=== PATIENT | male | born 1960 | race Caucasian/White ===

== ENCOUNTER 2017-01-15 19:47 | Emergency (ER) | payer SELFPAY ==
[~2017-01-15] VITALS: Ht 182.9 cm; Wt 92.5 kg
[2017-01-15 22:00] VITALS: BP 147/90
== END 2017-01-15 22:47 | disposition home or self-care (01) ==
LOC: ER 19:53
DX: L02.414 Cutaneous abscess of left upper limb (principal); F17.210 Nicotine dependence, cigarettes, uncomplicated
CPT/HCPCS: 10060

== ENCOUNTER 2017-01-24 14:42 | Emergency (ER) | payer SELFPAY ==
[~2017-01-24] VITALS: Ht 182.9 cm; Wt 88.5 kg
[2017-01-24 15:32] VITALS: BP 121/78
== END 2017-01-24 16:28 | disposition home or self-care (01) ==
LOC: ER 14:42
DX: L02.412 Cutaneous abscess of left axilla (principal); F17.210 Nicotine dependence, cigarettes, uncomplicated
CPT/HCPCS: 10060; 82962

== ENCOUNTER 2024-06-17 14:38 | Emergency (ER) | payer OTHER ==
[~2024-06-17] VITALS: Ht 182.9 cm; Wt 85.3 kg
[2024-06-17 15:23] LABS: Basophils # (auto) 0.1 10 ^3/uL (0-0.2); Basophils % (auto) 0.7 % (0.0-2.0); Eosinophils # (auto) 0.1 10 ^3/uL (0-0.8); Eosinophils % (auto) 1.2 % (0.0-7.0); Hematocrit 52.7 % (41.0-53.0); Hemoglobin 18.1 g/dL (13.5-17.5); Lymphocytes % (auto) 25.5 % (10.0-50.0); Mean Corpuscular Hemoglobin 33.8 pg (28.0-32.0); Mean Corpuscular Hgb Conc. 34.3 g/dL (32.0-36.0); Mean Corpuscular Volume 98.6 fL (80.0-100.0); Monocytes # (auto) 0.9 10 ^3/uL (0-1.3); Monocytes % (auto) 11.7 % (0.0-12.0); Neutrophils # (auto) 4.8 10 ^3/uL (1.6-8.6); Neutrophils % (auto) 60.9 % (37.0-80.0); Nucleated Red Blood Cells % 0.1 %; Red Blood Cells 5.34 10^6/uL (4.5-5.90); Red Cell Distribution Width 12.9 % (11.8-14.3); White Blood Cell 7.9 10^3/uL (4.4-10.8)
[2024-06-17 15:37] LABS: Alanine Aminotransferase 10 U/L (7-40); Albumin 4.6 g/dL (3.2-4.8); Alkaline Phosphatase 85 U/L (46-116); Anion Gap 9 (5-15); Aspartate Aminotransferase 17 U/L (13-40); BUN/Creatinine Ratio 9.1 (10.0-20.0); Bilirubin, Total 0.4 mg/dL (0.2-1.0); Blood Urea Nitrogen 10 mg/dL (9-23); Calcium 9.9 mg/dL (8.7-10.4); Carbon Dioxide 22 mmol/L (20-30); Chloride 107 mmol/L (98-107); Glucose 119 mg/dL (74-106); Potassium 4.5 mmol/L (3.5-5.1); Sodium 138 mmol/L (136-145); Total Protein 7.1 g/dL (5.7-8.2)
[2024-06-17 16:07] LABS: Urine Bacteria None Seen /hpf (None Seen)
[2024-06-17 16:22] LABS: Urine Blood Negative /uL (Negative); Urine Clarity Clear (Clear); Urine Color Yellow (Yellow); Urine Hyaline Cast FEW /lpf (0 - 2); Urine Mucus FEW (None Seen); Urine Protein, UAD TRACE (Negative); Urine Specific Gravity 1.026 (1.001-1.035); Urine Urobilinogen Normal (Negative); Urine WBC 11 /hpf (0 - 3)
[2024-06-17] MEDS: SODIUM CHLORIDE 0.9% 1,000 ML IV ONE (16:43)
[2024-06-17] MEDS: KETOROLAC TROMETH 30 MG/ML 1ML VIAL IV ONE (16:45)
[2024-06-17] MEDS: ONDANSETRON HCL 4 MG/2 ML VIAL IV ONE (16:45)
[2024-06-17] MEDS ORDERED: HYDR-4902 PO (16:46)
[2024-06-17 16:50] VITALS: BP 130/80; TEMP 97.9
[2024-06-17 16:51] VITALS: PULSE 81; RESP 19; O2SAT 99
== END 2024-06-17 17:14 | disposition home or self-care (01) ==
LOC: ER 14:46
DX: N20.1 Calculus of ureter (principal); F17.210 Nicotine dependence, cigarettes, uncomplicated; Z87.442 Personal history of urinary calculi
CPT/HCPCS: 36415; 74176; 80053; 81001; 85025; 96361; 96374; 96375; 99285; J1885; J2405; J7030

== ENCOUNTER 2024-11-10 13:48 | Emergency (ER) | payer OTHER ==
[~2024-11-10] VITALS: Ht 182.9 cm; Wt 88.0 kg
[~2024-11-10 13:48] MED LIST: HYDR-4902 PO
--- NOTE | 2024-11-10 15:00 | DVH ---
EXAM: CT HEAD WITHOUT CONTRAST INDICATION: fall, head trauma, hemorrhage from R ear TECHNIQUE: CT of the head without intravenous contrast. Radiation Dose Information: CT Dose: CTDI volume is 53.99 mGy. Dose-length product is 863.9 mGy*cm The dose indicators for CT are the volume Computed Tomography (CT) Dose Index (CTDIvol) and the Dose Length Product (DLP), and are measured in units of mGy and mGy-cm, respectively. These indicators are not patient dose, but values generated from the CT scanner acquisition factors. The report includes radiation exposure data for exposures received during this examination. COMPARISON: None FINDINGS: There is no evidence of acute intracranial hemorrhage, extra-axial collection, mass effect, midline s hift, herniation or hydrocephalus. The ventricles, sulci and cisterns are age appropriate. The queen-white differentiation is intact. Patchy periventricular and subcortical white matter hypoattenuation is nonspecific but may be related to small vessel ischemic disease. The visualized paranasal sinuses and mastoid air cells are clear. The surrounding soft tissues and osseous structures are unremarkable. IMPRESSION: 1. No acute intracranial hemorrhage. 2. No CT findings of territorial ischemia. 3. No CT findings of displaced skull fracture.
[2024-11-10 15:18] LABS: Basophils # (auto) 0.1 10 ^3/uL (0-0.2); Basophils % (auto) 0.8 % (0.0-2.0); Eosinophils # (auto) 0.1 10 ^3/uL (0-0.8); Eosinophils % (auto) 1.1 % (0.0-7.0); Hemoglobin 16.7 g/dL (13.5-17.5); Lymphocytes # (auto) 1.7 10 ^3/uL (0.4-5.4); Lymphocytes % (auto) 17.3 % (10.0-50.0); Mean Corpuscular Hemoglobin 33.8 pg (28.0-32.0); Mean Corpuscular Hgb Conc. 34.1 g/dL (32.0-36.0); Mean Corpuscular Volume 98.9 fL (80.0-100.0); Monocytes # (auto) 1.1 10 ^3/uL (0-1.3); Monocytes % (auto) 11.3 % (0.0-12.0); Neutrophils # (auto) 6.8 10 ^3/uL (1.6-8.6); Neutrophils % (auto) 69.5 % (37.0-80.0); Platelet Count (auto) 208 10^3/uL (140-450); Red Blood Cells 4.96 10^6/uL (4.5-5.90); Red Cell Distribution Width 13.2 % (11.8-14.3); White Blood Cell 9.8 10^3/uL (4.4-10.8)
[2024-11-10 15:24] LABS: Anion Gap 7 (5-15); Calcium 10.1 mg/dL (8.7-10.4); Carbon Dioxide 29 mmol/L (20-31); Chloride 105 mmol/L (98-107); Potassium 4.4 mmol/L (3.5-5.1); Sodium 141 mmol/L (136-145)
[2024-11-10 15:28] LABS: INR 0.96 (0.9-1.15); Partial Thromboplastin Time 25.9 SEC (24.5-34.5); Prothrombin Time 10.2 sec (9.3-11.8)
[2024-11-10 15:29] LABS: BUN/Creatinine Ratio 14.8 (10.0-20.0); Blood Urea Nitrogen 17 mg/dL (9-23)
[2024-11-10 15:38] LABS: Glucose 107 mg/dL (74-106)
[2024-11-10] MEDS ORDERED: ACET-1304 PO (19:44)
[2024-11-10] MEDS ORDERED: IBUP-1455 PO (19:44)
[2024-11-10] MEDS ORDERED: BAC09TP TOP (19:44)
[2024-11-10] MEDS ORDERED: CEPH500C PO (19:44)
--- NOTE | 2024-11-10 19:45 | ED.PDOC ---
History of Present Illness HPI Comments 63-year-old male brought in by family complaining of bleeding from his right ear after a mechanical fall. Patient states he was standing on a boat about 10 ft off the ground, when he lost his balance, fell and hit the right side of his head on the ground. He denies losing consciousness or sustain any other injury. He states when he stood up he was having pain in his right ear and heavy bleeding. He denies any nausea, vomiting, vision changes, dizziness or focal weakness. Chief Complaint: Head injury Time Seen by MD: 14:19 Primary Care Provider: NONE Allergies: Coded Allergies: NO KNOWN ALLERGIES (Unverified , 01/24/17) Home Meds Active Scripts Hydrocodone-Acetaminophen (Hydrocodone Bitartrate/AC 5-325 mg) 1 Tab Tab, 1 TAB PO Q8HP PRN for 5 Days, #15 TAB Prov:EVELINE MARTINEZ MD 06/17/24 Mode of Arrival: Ambulatory Past Medical History PAST MEDICAL HISTORY: Kidney Stones Surgical History: Denies all surgeries Family History Family History: Family hx of DM Social History Smoker: Cigarettes Alcohol: Denies ETOH Use Drugs: Denies Drug Use Lives In: Home All Other Systems: Reviewed and Negative (Comprehensive systems review obtained and negative except for what is stated in the HPI.) Physical Exam General Appearance: Mild Distress HEENT: Other (Heavy dark red bleeding from right ear. Large clot in right ear canal. Irregular lacerations on the superior aspect of the helix, lobule, and extending from the antihelix through the javon to the anti tragus. Unable to visualize TM due to canal edema and blood clots) Neck: Full Range of Motion, Non-Tender, Normal Inspection, Supple Respiratory: Chest Non-Tender, Lungs Clear, No Accessory Muscle Use, No Respiratory Distress, Normal Breath Sounds Cardiovascular: No Edema, No JVD, Regular Rate/Rhythm Breast Exam: Deferred Gastrointestinal: Non Tender, Soft Genitalia: Deferred Pelvic: Deferred Rectal: Deferred Extremities: Normal inspection, Normal range of motion, Non-tender, No pedal edema Neurologic: Alert (Oriented x4), Headache, Normal Affect, Normal Mood, Other (Ambulatory without difficulty. No gross focal deficit.) Cerebellar Function: NOT DONE Reflexes: NOT DONE Skin: Dry, Normal Color, Warm, Other (Right ear diffuse soft tissue swelling and tenderness. Subcentimeter superficial linear lacerations superior aspect of the helix, subcentimeter superficial laceration of the lobule. Superficial irregular approximate 3 cm laceration extending from the superior part of the antihelix through the javon to the antitragus.) Lymphatic: NOT DONE Was a procedure done? Was a procedure done?: Yes Sedation Sedation?: No Laceration Repair #1: Location Posterior aspect of the helix right ear Length 4 mm Anesthetic: Nothing Laceration Repair Prep: Saline, Betadine, by Irrigation Laceration Repair Wound Comple: epidermis/dermis repair Laceration Repair: Dermabond Informed consent obtained: Yes Risks, benefits, and alternati: Yes Laceration Repair #2: Location Lobule, right ear Length 5 mm Anesthetic: Nothing Laceration Repair Prep: Saline, Betadine, by Irrigation Laceration Repair Wound Comple: epidermis/dermis repair Laceration Repair: Dermabond Informed consent obtained: Yes Risks, benefits, and alternati: Yes Laceration Repair #3: Location Right Ear antihelix/javon/anti tragus Length 3 cm Anesthetic: Lidocaine, Without epi Laceration Repair Prep: Saline, Betadine, by Irrigation Laceration Repair Wound Comple: epidermis/dermis repair Laceration Repair: Number of sutures (3), Skin, Nylon, Simple, Bacitracin Informed consent obtained: Yes Risks, benefits, and alternati: Yes Differential Dx Considerations may include: Concussion, skull fracture, intracranial hemorrhage, TM rupture, ear contusion, laceration, among others X-Ray, Labs, Meds, VS Vital Signs Date Time Temp Pulse Resp B/P (MAP) Pulse Ox O2 Delivery O2 Flow Rate FiO2 11/10/24 14:39 98.2 111 16 152/92 (112) 96 Lab Test 11/10/24 14:45 Range/Units White Blood Count 9.8 4.4-10.8 10^3/uL Red Blood Count 4.96 4.5-5.90 10^6/uL Hemoglobin 16.7 13.5-17.5 g/dL Hematocrit 49.0 41.0-53.0 % Mean Corpuscular Volume 98.9 80.0-100.0 fL Mean Corpuscular Hemoglobin 33.8 H 28.0-32.0 pg Mean Corpuscular Hemoglobin Concent 34.1 32.0-36.0 g/dL Red Cell Distribution Width 13.2 11.8-14.3 % Platelet Count 208 140-450 10^3/uL Mean Platelet Volume 7.7 6.9-10.8 fL Neutrophils (%) (Auto) 69.5 37.0-80.0 % Lymphocytes (%) (Auto) 17.3 10.0-50.0 % Monocytes (%) (Auto) 11.3 0.0-12.0 % Eosinophils (%) (Auto) 1.1 0.0-7.0 % Basophils (%) (Auto) 0.8 0.0-2.0 % Neutrophils # (Auto) 6.8 1.6-8.6 10 ^3/uL Lymphocytes # (Auto) 1.7 0.4-5.4 10 ^3/uL Monocytes # (Auto) 1.1 0-1.3 10 ^3/uL Eosinophils # (Auto) 0.1 0-0.8 10 ^3/uL Basophils # (Auto) 0.1 0-0.2 10 ^3/uL Nucleated Red Blood Cells 0.0 % Prothrombin Time 10.2 9.3-11.8 sec Prothrombin Time INR 0.96 0.9-1.15 Activated Partial Thromboplast Time 25.9 24.5-34.5 SEC Sodium Level 141 136-145 mmol/L Potassium Level 4.4 3.5-5.1 mmol/L Chloride Level 105 98-107 mmol/L Carbon Dioxide Level 29 20-31 mmol/L Anion Gap 7 5-15 Blood Urea Nitrogen 17 9-23 mg/dL Creatinine 1.15 0.700-1.30 mg/dL Glomerular Filtration Rate Calc 71 >90 mL/min BUN/Creatinine Ratio 14.8 10.0-20.0 Serum Glucose 107 H 74-106 mg/dL Calcium Level 10.1 8.7-10.4 mg/dL PROCEDURE(s): HWOCT - HEAD WITHOUT CONTRAST REASON: fall, head trauma, hemorrhage from R ear ORDER NUMBER(s): [id number], ACCESSION NUMBER(s): [id number] EXAM: CT HEAD WITHOUT CONTRAST INDICATION: fall, head trauma, hemorrhage from R ear TECHNIQUE: CT of the head without intravenous contrast. Radiation Dose Information: CT Dose: CTDI volume is 53.99 mGy. Dose-length product is 863.9 mGy*cm The dose indicators for CT are the volume Computed Tomography (CT) Dose Index (CTDIvol) and the Dose Length Product (DLP), and are measured in units of mGy and mGy-cm, respectively. These indicators are not patient dose, but values generated from the CT scanner acquisition factors. The report includes radiation exposure data for exposures received during this examination. COMPARISON: None FINDINGS: There is no evidence of acute intracranial hemorrhage, extra-axial collection, mass effect, midline shift, herniation or hydrocephalus. The ventricles, sulci and cisterns are age appropriate. The queen-white differentiation is intact. Patchy periventricular and subcortical white matter hypoattenuation is nonspecific but may be related to small vessel ischemic disease. The visualized paranasal sinuses and mastoid air cells are clear. The surrounding soft tissues and osseous structures are unremarkable. IMPRESSION: 1. No acute intracranial hemorrhage. 2. No CT findings of territorial ischemia. 3. No CT findings of displaced skull fracture. X-Ray, Labs, Meds, VS Comment 63-year-old male with a history of kidney stones presenting with right ear bleeding, lacerations and pain after a mechanical fall with head injury. Vitals remarkable for blood pressure 152/92, heart rate 111 Exam remarkable for right ear diffuse soft tissue swelling and tenderness, irregular lacerations, and moderate dark red bleeding Rhythm strip independently interpreted by me: Sinus tach, rate 111, no ectopy. CT head IMPRESSION: 1. No acute intracranial hemorrhage. 2. No CT findings of territorial ischemia. 3. No CT findings of displaced skull fracture. CBC, basic metabolic panel, coagulation panel unremarkable Treated with the following the ED: Morphine 4 mg IV, Zofran 4 mg IV, Tdap 0.5 mL IM, Marbury 5/325 mg p.o. The 2 subcentimeter lacerations were closed using tissue adhesive. The 3 cm laceration was closed using 5.0 Ethilon, #3. Please see procedure notes for details. Bacitracin and a dressing were applied to the sutured laceration. Patient tolerated the procedures well. On re-evaluation, patient states his pain has improved, vitals are stable. He is ambulatory without difficulty. Hospitalization was considered, however patient had rapid improvement of his symptoms with treatment in the ED, he has no focal neurologic deficit, and I no longer feel hospitalization is necessary. Patient appears stable for close outpatient follow up with his primary physician for all to an ENT specialist. Since TM rupture can not be ruled out as I was unable to visualize the TM due to canal edema, the patient will be prescribed antibiotics and close ENT follow up was advised. Patient advised to return to ER in 2-3 days for wound check and 7- 10 days for suture removal. Rx Tylenol, ibuprofen, bacitracin, Keflex Time of 1ST Reevaluation: 19:37 Reevaluation 1ST: Improved Patient Education/Counseling: Diagnosis, Treatment, Need For Follow Up Family Education/Counseling: No Family Present Departure 1 Departure Time of Disposition: 19:37 Impression: Primary Impression: Head injury Qualified Codes: S09.90XA - Unspecified injury of head, initial encounter Additional Impressions: Contusion of right ear Qualified Codes: S00.431A - Contusion of right ear, initial encounter Laceration of right ear Qualified Codes: S01.311A - Laceration without foreign body of right ear, initial encounter Disposition: HOME / SELF CARE / HOMELESS Condition: Stable Additional Instructions: Head CT was unremarkable. Your blood tests were unremarkable. There is a possibility that your tympanic membrane (eardrum) could be damaged. Follow up with your primary doctor in 1-2 days for referral to an ENT (Ear, Nose and Throat) specialist for further evaluation. Alternatively, follow up at for referral to an ENT specialist. Follow up in ER in 2 days for wound check and 10 days for suture removal. The lacerations on the outside of your ear were closed with tissue adhesive. Do not apply oils or lotions to the glued areas. Laceration inside her ear was repaired using 3 stitches. Wash with warm water and pat dry after cleansing. Apply bacitracin only to the sutured wound inside her ear. Return to ER for worsening pain, redness, swelling, wound discharge or any other concern. e-Prescriptions Cephalexin Monohydrate (Cephalexin) 500 Mg Cap 1 CAP PO TID for 7 Days, #21 CAP Prov: OSITO FIGUEROA MD 11/10/24 Bacitracin (Bacitracin Oint) 1 Applic Ap 1 APPLIC TOP TID, #30 GRAMS apply only to sutured wound inside ear Prov: OSITO FIGUEROA MD 11/10/24 Ibuprofen Micronized (Ibuprofen) 800 Mg Tab 800 MG PO Q8HP PRN, #30 TAB prn pain, take with food Prov: OSITO FIGUEROA MD 11/10/24 Acetaminophen (Tylenol Extra Strength) 500 Mg Tab 1000 MG PO Q6HP PRN, #30 TAB prn pain Prov: OSITO FIGUEROA MD 11/10/24 Discharged With: Relative Critical Care Note Critical Care Time?: No Stability Stability form required: No Heart Score Heart Score: Heart Score Response (Comments) Value History N/A 0 EKG N/A 0 Age N/A 0 Risk Factors N/A 0 Troponin N/A 0 Total 0 OSITO FIGUEROA MD Nov 10, 2024 19:45
[2024-11-10] MEDS: TETANUS-DIPTH-ACEL PERTUSSIS 0.5ML SYR Tdap IM ONE (20:56)
[2024-11-10] MEDS: ONDANSETRON HCL 4 MG/2 ML VIAL IV ONE (20:56)
[2024-11-10] MEDS: MORPHINE SULFATE 4 MG/ML SYR/VIAL IV ONE ×2 (20:56)
[2024-11-10] MEDS: HYDROcodone-ACET 5/325MG TAB PO ONE (21:01)
[2024-11-10] MEDS: BACITRACIN TOP OINT 1 UD PKG TOP ONE (21:08)
[2024-11-10 21:13] VITALS: BP 128/85; PULSE 108; RESP 18; TEMP 98.2; O2SAT 97
== END 2024-11-10 21:17 | disposition home or self-care (01) ==
LOC: ER 13:48
DX: S01.311A Laceration without foreign body of right ear, initial encounter (principal); F17.210 Nicotine dependence, cigarettes, uncomplicated; Z79.899 Other long term (current) drug therapy; Z86.2 Personal history of diseases of the blood and blood-forming organs and certain disorders involving the immune mechanism; W17.89XA Other fall from one level to another, initial encounter; Y93.89 Activity, other specified; Y92.89 Other specified places as the place of occurrence of the external cause; Y99.8 Other external cause status
CPT/HCPCS: 12013; 36415; 70450; 80048; 85025; 85610; 85730

== ENCOUNTER 2024-11-30 19:56 | Emergency (ER) | payer MEDICARE, OTHER ==
[~2024-11-30] VITALS: Ht 182.9 cm; Wt 90.9 kg
[~2024-11-30 19:56] MED LIST changes: +ACET-1304 PO; +BAC09TP TOP; +CEPH500C PO; +IBUP-1455 PO
[2024-11-30 20:00] VITALS: BP 138/79; PULSE 92; RESP 17; O2SAT 95
--- NOTE | 2024-12-01 00:09 | ED.PDOC ---
History of Present Illness(SKN HPI Comments This patient is a pleasant 64-year-old male who came in today for evaluation of a right ear wound that had three sutures placed. Patient denies any healing concerns. Patient denies any blood loss after the procedure. Vital signs were stable on arrival. Chief Complaint: Suture Removal Time Seen by MD: 23:50 Primary Care Provider: ? History of Present Illness: Nurses Notes Allergies: Coded Allergies: NO KNOWN ALLERGIES (Unverified , 01/24/17) Home Meds Active Scripts Cephalexin Monohydrate (Cephalexin) 500 Mg Cap, 1 CAP PO TID for 7 Days, #21 CAP Prov:OSITO FIGUEROA MD 11/10/24 Bacitracin (Bacitracin Oint) 1 Applic Ap, 1 APPLIC TOP TID, #30 GRAMS apply only to sutured wound inside ear Prov:OSITO FIGUEROA MD 11/10/24 Ibuprofen Micronized (Ibuprofen) 800 Mg Tab, 800 MG PO Q8HP PRN, #30 TAB prn pain, take with food Prov:OSITO FIGUEROA MD 11/10/24 Acetaminophen (Tylenol Extra Strength) 500 Mg Tab, 1000 MG PO Q6HP PRN, #30 TAB prn pain Prov:OSITO FIGUEROA MD 11/10/24 Hydrocodone-Acetaminophen (Hydrocodone Bitartrate/AC 5-325 mg) 1 Tab Tab, 1 TAB PO Q8HP PRN for 5 Days, #15 TAB Prov:EVELINE MARTINEZ MD 06/17/24 Information Source: Patient Mode of Arrival: Ambulatory Severity: Moderate Timing: Days Duration: Since onset Prehospital treatment: Other (Sutures placed) Location: Ear Mechanism: Blunt Trauma, Fall Wound Type: Laceration Tetanus: UTD Past Medical History PAST MEDICAL HISTORY: Denies Surgical History: Denies all surgeries Family History Family History: Reviewed,noncontributory to illness, Unknown Social History Smoker: Non-Smoker Alcohol: Denies ETOH Use Drugs: Denies Drug Use Lives In: Home Constitutional: denies: chills, diaphoresis, fatigue, fever, malaise, sweats, weakness, others EENTM: denies: blurred vision, double vision, ear bleeding, ear discharge, ear drainage, ear pain, ear ringing, eye pain, eye redness, hearing loss, mouth pain, mouth swelling, nasal discharge, nose bleeding, nose congestion, nose pain, photophobia, tearing, throat pain, throat swelling, voice changes, others Respiratory: denies: cough, hemoptysis, orthopnea, SOB at rest, shortness of breath, SOB with excertion, stridor, wheezing, others Cardiovascular: denies: chest pain, dizzy spells, diaphoresis, Dyspnea on exertion, edema, irregular heart beat, left arm pain, lightheadedness, palpitations, PND, syncope, others Gastrointestinal: denies: abdomen distended, abdominal pain, blood streaked bowels, constipated, diarrhea, dysphagia, difficulty swallowing, hematemesis, melena, nausea, poor appetite, poor fluid intake, rectal bleeding, rectal pain, vomiting, others Genitourinary: denies: burning, dysuria, flank pain, frequency, hematuria, incontinence, penile discharge, penile sore, pain, testicle pain, testicle swelling, urgency, others Neurological: denies: dizziness, fainting, headache, left sided numbness, left sided weakness, numbness, paresthesia, pre-existing deficit, right sided num bness, right sided weakness, seizure, speech problems, tingling, tremors, weakness, others Musculoskeletal: denies: back pain, gout, joint pain, joint swelling, muscle pain, muscle stiffness, neck pain, others Integumetry: reports: laceration (With in the right ear); denies: bruises, change in color, change in hair/nails, dryness, lesions, lumps, rash, wounds, others Allergic/Immunocompromised: denies: Difficulty Healing, Frequent Infections, Hives, Itching, others Hematologic/Lymphatic: denies: anemia, blood clots, easy bleeding, easy bruising, swollen glands, others Endocrine: denies: excessive hunger, excessive sweating, excessive thirst, excessive urination, flushing, intolerance to cold, intolerance to heat, unexplained weight gain, unexplained weight loss, others Psychiatric: denies: anxiety, bipolar disorder, depression, hopeless, panic disorder, schizophrenia, sleepless, suicidal, others Physical Exam General Appearance: No Apparent Distress (Patient is in no distress at time of evaluation.), Normal HEENT: Normal ENT Inspection, Pharynx Normal, TMs Normal Neck: Full Range of Motion, Non-Tender, Normal, Normal Inspection Respiratory: Chest Non-Tender, Lungs Clear, No Accessory Muscle Use, No Respiratory Distress, Normal Breath Sounds Cardiovascular: No Edema, No JVD, No Murmur, No Gallop, Normal Peripheral Pulses, Regular Rate/Rhythm Breast Exam: Deferred Gastrointestinal: No Organomegaly, Non Tender, No Pulsatile Mass, Normal Bowel Sounds, Soft Genitalia: Deferred Pelvic: Deferred Rectal: Deferred Extremities: No calf tenderness, Normal capillary refill, Normal inspection, Normal range of motion, Non-tender, No pedal edema Neurologic: Alert, travel accommodations rater II-XII nml as Tested, No Motor Deficits, Normal Affect, Normal Mood, No Sensory Deficits Cerebellar Function: Normal Reflexes: Normal Skin: Dry, Lacerations (Patient displays a 2 cm healing laceration to the javon of the right ear. Three sutures were in place. No dehiscence. No signs of infection.), Normal Color, Warm Lymphatic: No Adenopathy Was a procedure done? Was a procedure done?: Yes Sedation Sedation?: No Other Procedure Notes Three sutures were removed from the patient's right ear without event. Patient tolerated procedure well. Differential Diagnosis (INTG) Differential Diagnosis: Other (Encounter for suture removal) X-Ray, Labs, Meds, VS Vital Signs Date Time Temp Pulse Resp B/P (MAP) Pulse Ox O2 Delivery O2 Flow Rate FiO2 11/30/24 20:00 97.9 92 17 138/79 (98) 95 X-Ray, Labs, Meds, VS Comment Patient tolerated suture removal well. Patient can go back to regular hygiene. Time of 1ST Reevaluation: 00:08 Reevaluation 1ST: Improved Consultation: PCP Patient Education/Counseling: Diagnosis, Treatment Family Education/Counseling: Diagnosis, Treatment Departure 1 Departure Time of Disposition: 00:08 Impression: Primary Impression: Encounter for removal of sutures Disposition: 01 HOME / SELF CARE / HOMELESS Condition: Stable Discharged With: Self Critical Care Note Critical Care Time?: No Stability Stability form required: No Heart Score Heart Score: Heart Score Response (Comments) Value History N/A 0 EKG N/A 0 Age N/A 0 Risk Factors N/A 0 Troponin N/A 0 Total 0 LUCY CARBAJAL Dec 01, 2024 00:09
== END 2024-12-01 00:08 | disposition home or self-care (01) ==
LOC: ER 19:56
DX: S01.311D Laceration without foreign body of right ear, subsequent encounter (principal); Z48.02 Encounter for removal of sutures; Z79.899 Other long term (current) drug therapy; X58.XXXD Exposure to other specified factors, subsequent encounter

== ENCOUNTER 2025-07-20 01:13 | Emergency (ER) | payer OTHER, MEDICAID ==
[~2025-07-20] VITALS: Ht 177.8 cm; Wt 84.9 kg
--- NOTE | 2025-07-20 03:25 | ED.PDOC ---
History of Present Illness(SKN HPI Comments PT CAME TO THE ER WITH CC OF BILATTERAL HORTA TO THE BOTTOM OF BOTH FEET, PT STATES HE WAS WALKING ACROSS VERY HOT SAND AT THE SCALES. PT LOOKED AT HIS FEET AND THE BOTTOM WERE BLISTERING AND BLOODY. PT IS A&OX4 RR EVEN AND REGULAR NO DISTRESS NOTED AT THIS TIME. PT DENIES N/V/D CP SOB. Chief Complaint: Lower Extremity Time Seen by MD: 01:24 Primary Care Provider: ? History of Present Illness: Nurses Notes, Medications, Allergies Allergies: Coded Allergies: NO KNOWN ALLERGIES (Unverified , 01/24/17) Home Meds Active Scripts Cephalexin Monohydrate (Cephalexin) 500 Mg Cap, 1 CAP PO TID for 7 Days, #21 CAP Prov:OSITO FIGUEROA MD 11/10/24 Bacitracin (Bacitracin Oint) 1 Applic Ap, 1 APPLIC TOP TID, #30 GRAMS apply only to sutured wound inside ear Prov:OSITO FIGUEROA MD 11/10/24 Ibuprofen Micronized (Ibuprofen) 800 Mg Tab, 800 MG PO Q8HP PRN, #30 TAB prn pain, take with food Prov:OSITO FIGUEROA MD 11/10/24 Acetaminophen (Tylenol Extra Strength) 500 Mg Tab, 1000 MG PO Q6HP PRN, #30 TAB prn pain Prov:OSITO FIGUEROA MD 11/10/24 Hydrocodone-Acetaminophen (Hydrocodone Bitartrate/AC 5-325 mg) 1 Tab Tab, 1 TAB PO Q8HP PRN for 5 Days, #15 TAB Prov:EVELINE MARTINEZ MD 06/17/24 Discontinued Scripts Doxycycline Hyclate (Doxycycline Hyclate) 100 Mg Cap, 100 MG PO BID for 7 Days, #14 CAP Prov:PRINCE LONGO 07/20/25 Ibuprofen (Ibuprofen) 800 Mg Tab, 800 MG PO Q8HP PRN for 5 Days, #15 TAB Prov:PRINCE LONGO 07/20/25 Information Source: Patient Mode of Arrival: Ambulatory Past Medical History PAST MEDICAL HISTORY: Denies Surgical History: Denies all surgeries Family History Family History: Reviewed,noncontributory to illness, Unknown Social History Smoker: Non-Smoker Alcohol: Denies ETOH Use Drugs: Denies Drug Use Lives In: Home All Other Systems: Reviewed and Negative (see hpi) Physical Exam General Appearance: No Apparent Distress, Normal HEENT: Pharynx Normal Neck: Full Range of Motion, Non-Tender Respiratory: Lungs Clear, No Respiratory Distress, Normal Breath Sounds Cardiovascular: No Edema, No JVD, No Murmur, No Gallop, Normal Peripheral Pulses, Regular Rate/Rhythm Breast Exam: Deferred Gastrointestinal: No Organomegaly, Non Tender, No Pulsatile Mass, Normal Bowel Sounds, Soft Genitalia: Deferred Pelvic: Deferred Rectal: Deferred Extremities: No calf tenderness, Normal capillary refill, No pedal edema Musculoskeletal : Apperance: Normal Neurologic: Alert, No Motor Deficits, Normal Affect, Normal Mood, No Sensory Deficits Cerebellar Function: Normal Reflexes: NOT DONE Skin: Dry, Normal Color, Warm, Wounds (Bilateral feet palmar aspect open blisters clear drainage trace erythema and edema no noted streaking strength sensory motion intact positive pedal pulses) Lymphatic: No Adenopathy Was a procedure done? Was a procedure done?: No Differential Diagnosis (INTG) Differential Diagnosis: Abrasion, Cellulitis, Hematoma, Puncture Wound Differential Diagnosis: Abscess X-Ray, Labs, Meds, VS Vital Signs Date Time Temp Pulse Resp B/P (MAP) Pulse Ox O2 Delivery O2 Flow Rate FiO2 07/20/25 03:47 91 14 94 Room Air 07/20/25 03:26 98.1 99 14 129/85 (100) 94 98.1 07/20/25 01:17 98.1 103 20 139/89 98 98.1 Time of 1ST Reevaluation: 01:24 Reevaluation 1ST: Unchanged Time of 2ND Reevaluation: 03:20 Reevaluation 2ND: Improved Patient Education/Counseling: Diagnosis, Treatment, Prognosis, Need For Follow Up Family Education/Counseling: No Family Present SEPSIS Sepsis Screen Date sepsis recognized/suspect: Jul 20, 2025 Time Sepsis recognized/suspect: 0122 Recent Procedure: No On Antibiotic Therapy: No Respiratory Rate >20: No Heart Rate >90: No Temp<36 C (96.8 F) or >38.3 C: No SBP <90 or MAP <65 mmHG: No New Acute Mental Status Change: No Is the patient on CPAP, BIPAP,: No Vital Signs Date Time Temp Pulse Resp B/P (MAP) Pulse Ox O2 Delivery O2 Flow Rate FiO2 07/20/25 03:47 91 14 94 Room Air 07/20/25 03:26 98.1 99 14 129/85 (100) 94 98.1 07/20/25 01:17 98.1 103 20 139/89 98 98.1 Departure 1 Departure Time of Disposition: 03:29 Impression: Primary Impression: Blister (nonthermal), left foot, initial encounter Additional Impression: Blister (nonthermal), right foot, initial encounter Disposition: HOME / SELF CARE / HOMELESS Condition: Stable Discharged With: Self Critical Care Note Critical Care Time?: No Stability Stability form required: PRINCE Kaufman Jul 20, 2025 03:25
[2025-07-20 03:26] VITALS: BP 129/85; TEMP 98.1
[2025-07-20] MEDS ORDERED: DOXY100C4 PO (03:32)
[2025-07-20] MEDS ORDERED: IBUP-1456 PO (03:32)
[2025-07-20] MEDS: KETOROLAC TROMETH 60MG/2ML VIAL IM ONE (03:38)
[2025-07-20] MEDS: OXYCODONE W/ ACETAMINOPHEN 5/325MG TABLET PO ONE (03:38)
[2025-07-20] MEDS: cefTRIAXone SOD 1,000 MG VL IM ONE (03:46)
[2025-07-20 03:47] VITALS: PULSE 91; RESP 14; O2SAT 94
== END 2025-07-20 03:59 | disposition home or self-care (01) ==
LOC: ER 01:20
DX: S90.821A Blister (nonthermal), right foot, initial encounter (principal); S90.822A Blister (nonthermal), left foot, initial encounter; Z79.899 Other long term (current) drug therapy; X58.XXXA Exposure to other specified factors, initial encounter; Y93.01 Activity, walking, marching and hiking; Y92.89 Other specified places as the place of occurrence of the external cause; Y99.8 Other external cause status
CPT/HCPCS: 16020; 96372; 99284; J0696; J1885